=== PATIENT | male | born 1945 | race Caucasian/White ===

== ENCOUNTER 2022-11-28 11:24 | Emergency (ER) | payer MEDICARE, OTHER, SELFPAY ==
[2022-11-28 11:36] VITALS: BP 156/91; PULSE 104; RESP 16; TEMP 36.8; O2SAT 97
[2022-11-28] MEDS: TETANUS,DIPHTHERIA,AC PERTUSSIS ADULT (0.5 ML) BOOSTRIX IM (12:22)
--- NOTE | 2022-11-28 12:45 | ED.WOUNDLAC ---
HPI - Wound/Laceration General Chief Complaint: Wound/Laceration Stated Complaint: finger laceration Time Seen by Provider: 11/28/22 12:03 Source: patient and RN notes reviewed Mode of arrival: ambulatory Limitations: no limitations History of Present Illness HPI narrative: This is a 77 year old male who presents for evaluation of left middle finger laceration. He states he was cutting down some bushes and he cut his finger pad on left 3rd finger. His states he appeared to bleed alot. He has gotten his bleeding under control now after applying pressure. He denies pain. He takes aspirin 81 mg every other day and denies other blood thinners. His last tetanus was 10 years ago. Related Data Allergies Allergy/AdvReac Type Severity Reaction Status Date / Time MARCO Inhibitors Allergy Cough Verified 11/28/22 11:35 Review of Systems Review of Systems: All systems reviewed & are unremarkable except as noted in HPI and below PMFSH Past Medical History Medical History (Updated 11/28/22 @ 12:51 by Tiff Chester MD) Hypertension Social History Social History (Updated 11/28/22 @ 12:47 by Tiff Chester MD) Smoking status: Never smoker Exam Const: General: healthy appearing and no acute distress Orientation/consciousness: patient oriented x3 Limitations: no limitations HENMT: Head: normal to inspection Eyes: EOM: EOMs intact bilaterally Resp: Effort & Inspection: normal respiratory effort Cardio: Other: palpable pulses Skin: Wounds: wounds noted (superficial laceration finger pad of 3rd finger, no bleeding 1 cm) Neuro: General: patient oriented x3, moves all extremities and CN's II-XI intact bilaterally Extrem: Other: FROM of all fingers Psych: Mental Status: mental status grossly normal Affect: normal affect Attitude: cooperative Course Reevaluation(s) Reevaluation #1: I Discussed with patient wound care and how to stop bleeding. i did not think patient needed stitches. They did want dermabond. Date: 11/28/22 Time: 12:49 Vital Signs Vital signs: Vital Signs Temperature 98.2 F 11/28/22 11:36 Pulse Rate 104 H 11/28/22 11:36 Respiratory Rate 16 11/28/22 11:36 Blood Pressure 156/91 H 11/28/22 11:36 Pulse Oximetry 97 11/28/22 11:36 Temperature 98.2 F 11/28/22 11:36 Pulse Rate 104 H 11/28/22 13:02 Respiratory Rate 12 11/28/22 13:02 Blood Pressure 120/77 11/28/22 13:02 Pulse Oximetry 98 11/28/22 13:02 Procedures Laceration Laceration 1: Date: 11/28/22 Time: 12:48 Site: hand (finger 3rd) Side (If applicable): left Size (cm): 1 Description: linear Depth: simple, single layer Local Anesthetic: none ====== Skin Level ====== Skin layer closed with: dermabond ====== Subcutaneous Layer ====== ====== Muscle Layer ====== ====== Tendon Layer ====== Discharge Plan Discharge Clinical Impression: Laceration of finger of left hand Qualifiers: Encounter type: initial encounter Finger: middle finger Damage to nail status: without damage Foreign body presence: without foreign body Qualified Code(s): S61.213A - Laceration without foreign body of left middle finger without damage to nail, initial encounter Patient Disposition: Home, Self-Care Condition: Stable Instructions: Laceration (ED), Skin Adhesive Care (ED) Additional Instructions: Please read discharge instructions about wound care Follow-up/Referrals: Davina,Dane Larson MD [Primary Care Provider] -
[2022-11-28 13:02] VITALS: BP 120/77; PULSE 104; RESP 12; O2SAT 98
== END 2022-11-28 13:03 | disposition home or self-care (01) ==
PROVIDERS: Emergency Provider General Practice; PCP Internal Medicine
DX: S61.213A Laceration without foreign body of left middle finger without damage to nail, initial encounter (principal); I10 Essential (primary) hypertension; Z23 Encounter for immunization; W26.8XXA Contact with other sharp object(s), not elsewhere classified, initial encounter
CPT/HCPCS: 12001; 90471; 90715; 96372; 99282